=== PATIENT | male | born 1955 | race Caucasian/White ===

== ENCOUNTER 2023-05-07 09:32 | Outpatient (CLI) | payer OTHER, SELFPAY ==
[2023-05-07 13:13] LABS: Calculated LDL 121 mg/dL (<100); Cholesterol 208 mg/dL (<200); HDL Cholesterol 76 mg/dL (40-60); Triglyceride 58 mg/dL (<150)
== END 2023-05-07 09:33 | disposition home or self-care (01) ==
LOC: LOS 09:32
PROVIDERS: PCP Family Medicine; Referring Provider Family Medicine; Visit Provider Family Medicine
DX: E78.5 Hyperlipidemia, unspecified (principal)
CPT/HCPCS: 36415; 80061

== ENCOUNTER 2023-07-22 05:16 | Outpatient (CLI) | payer OTHER, SELFPAY ==
[2023-07-22 20:18] LABS: Hepatitis C Ab w Rflx HCV PCR Negative (Negative)
[2023-08-01 14:13] LABS: Testosterone, Total 730 ng/dL (240-950)
== END 2023-07-22 05:17 | disposition home or self-care (01) ==
LOC: LBO 05:16
PROVIDERS: PCP Family Medicine; Visit Provider Family Medicine
DX: Z11.59 Encounter for screening for other viral diseases (principal); Z00.00 Encounter for general adult medical examination without abnormal findings
CPT/HCPCS: 36415; 84402; 84403; 86803

== ENCOUNTER 2024-04-20 10:26 | Outpatient (CLI) | payer MEDICARE, SELFPAY ==
[2024-04-20 12:22] LABS: Abs Immature Grans 0.01 10^3/uL (0.0-0.06); Absolute Basophil Count 0.02 10^3/uL (0.0-0.2); Absolute Eosinophil Count 0.09 10^3/uL (0.0-0.7); Absolute Lymphocyte Count 1.15 10^3/uL (1.2-3.4); Absolute Monocyte Count 0.75 10^3/uL (0.1-0.8); Absolute Neutrophil Count 2.31 10^3/uL (1.2-6.7); Basophils % 0.5 %; Eosinophils % 2.1 %; HCT 48.7 % (40.0-50.0); HGB 16.4 g/dL (13.5-17.5); Immature Grans % 0.2 %; Lymphocytes % 26.6 %; MCHC 33.7 % (32.0-36.0); MCV 86 fL (80-95); MPV 9.7 fL (8.0-11.0); Monocytes % 17.3 %; Neutrophils % 53.3 %; Platelet Count 248 10^3/uL (130-400); RBC 5.66 10^6/uL (4.36-5.78); RDW 12.1 % (11.8-14.1); RDW-SD 38.1 fL; WBC 4.33 10^3/uL (4.4-10.8)
[2024-04-20 12:32] LABS: ALT 27 U/L (16-63); AST 19 U/L (15-37); Albumin 3.8 g/dL (3.4-5.0); Alkaline Phosphatase 66 U/L (46-116); Anion Gap 6.5 mmol/L (3-11); BUN 19 mg/dL (7-18); CO2 29.5 mmol/L (21.0-32.0); CREATININE 0.9 mg/dL (0.70-1.30); Calcium 9.6 mg/dL (8.5-10.1); Calculated LDL 122 mg/dL (<100); Chloride 107 mmol/L (98-107); Cholesterol 211 mg/dL (<200); Estimated GFR 93.61 (mL/min/1.73m2); Glucose 80 mg/dL (74-106); HDL Cholesterol 78 mg/dL (40-60); Potassium 4.4 mmol/L (3.5-5.1); Sodium 143 mmol/L (136-145); Total Protein 7.3 g/dL (6.4-8.2); Triglyceride 55 mg/dL (<150)
== END 2024-04-20 10:27 | disposition home or self-care (01) ==
LOC: LOS 10:26
PROVIDERS: PCP Family Medicine; Referring Provider Family Medicine; Visit Provider Family Medicine
DX: R10.9 Unspecified abdominal pain (principal); D64.9 Anemia, unspecified; Z12.5 Encounter for screening for malignant neoplasm of prostate; E78.5 Hyperlipidemia, unspecified; I10 Essential (primary) hypertension
CPT/HCPCS: 36415; 80053; 80061; 84153; 85025